=== PATIENT | female | born 1945 | race Caucasian/White ===

== ENCOUNTER → 2018-02-28 | Outpatient (CLI) | payer MEDICARE ==
[~2018-02-28] MED LIST: ASPI-515 PO; LOSA50TA7 PO; METF500T17 PO; METF500T27 PO; OLOP2.5D OP; PRAV40TA2 PO; VITA1CAP15 PO
== END | disposition home or self-care (01) ==
LOC: CFH 07:20
PROVIDERS: ATTEND Family Medicine
DX: I10 Essential (primary) hypertension (principal); I35.8 Other nonrheumatic aortic valve disorders; E78.5 Hyperlipidemia, unspecified; Z87.891 Personal history of nicotine dependence; E11.9 Type 2 diabetes mellitus without complications
CPT/HCPCS: 93306